=== PATIENT | male | born 1970 | race Caucasian/White ===

== ENCOUNTER 2018-11-28 23:56 | Inpatient (IN) | payer SELFPAY ==
[2018-11-29 00:24] LABS: #Basophils 0.1 thou/uL (0.0-0.2); #Eosinphils 0.2 thou/uL (0.0-0.7); #Lymphocytes 2.7 thou/uL (1.20-3.40); #Monocytes 0.9 thou/uL (0.11-0.59); #Neutrophils 4.5 thou/uL (1.40-6.50); %Basophils 1.2 % (0.0-1.0); %Eosinophils 1.8 % (0.0-10.0); %Lymphocytes 32.2 % (21.0-51.0); %Neutrophils 53.8 % (42.0-75.0); Hemoglobin 16.6 g/dL (14.0-18.0); Mean Corpuscular HGB CONC 32.9 g/dL (32.0-36.0); Mean Corpuscular Hemoglobin 29.1 pg (27.0-31.0); Mean Corpuscular Volume 88.6 fL (78.0-98.0); Mean Platelet Volume 7.5 fL (7.4-10.4); Platelet Count 199 thou/uL (130-400); RBC Distribution Width 11.7 % (11.5-14.5); Red Blood Cell (RBC) Count 5.69 mill/uL (4.70-6.10); White Blood Cell (WBC) Count 8.3 thou/uL (4.8-10.8)
[2018-11-29 00:45] LABS: PTT 30.5 SEC (22.9-36.1); Prothrombin Time 13.5 SEC (12.0-14.7)
[2018-11-29 00:47] LABS: ALT (SGPT) 48 U/L (8-55); AST (SGOT) 28 U/L (5-34); Albumin 4.2 g/dL (3.5-5.0); Alkaline Phosphatase 110 U/L (40-150); Anion Gap 12 mmol/L (10-20); BUN (Urea Nitrogen) 19 mg/dL (8.9-20.6); Bilirubin, Total 0.3 mg/dL (0.2-1.2); CK (CPK) 109 U/L (30-200); Calc. Creatinine Clearance 0 mL/min (70-130); Calcium 9.6 mg/dL (7.8-10.44); Carbon Dioxide 28 mmol/L (22-29); Chloride 102 mmol/L (98-107); Estimated GFR-MDRD Greater than 90; Globulin 2.9 g/dL (2.4-3.5); Glucose 86 mg/dL (70-105); Protein, Total 7.1 g/dL (6.0-8.3); Sodium 138 mmol/L (136-145)
[2018-11-29] MEDS ORDERED: Acetaminophen 500 MG TAB PO PRN (04:38)
[2018-11-29] MEDS ORDERED: niCARdipine 25 MG in Sodium Chloride 0.9% 250 ML 240 ML IVPB PRN (04:38)
[2018-11-29] MEDS ORDERED: Ondansetron ODT 4 MG TAB PO PRN (04:38)
[2018-11-29] MEDS ORDERED: Labetalol HCl 100 MG/20 ML VIAL SLOW IVP PRN (04:38)
[2018-11-29] MEDS ORDERED: Ondansetron PF 4 MG/2 ML Vial IVP PRN (04:38)
[2018-11-29] MEDS: Communication Order-Pharmacy FS SCH (05:18)
[2018-11-29] MEDS: Sodium Chloride 0.9% 1,000 ML IV SCH ×2 (05:18→12:56)
--- NOTE | 2018-11-29 06:06 | HP ---
PRIMARY CARE PROVIDER: [facility]. CHIEF COMPLAINT: Difficulty speaking. HISTORY OF PRESENT ILLNESS: This is a 48-year-old male who presented to [facility] Emergency Department after apparently waking up after going to bed, unable to speak with some facial droop. The history is obtained after discussions with the Emergency Room attending in addition to family members at the bedside. The patient apparently had gone to sleep around 2100 and woke up with confusion and inability to speak. The patient was also noted with right-sided facial droop at which point the family notified EMS personnel. The patient does have a history of hypertension, however, is not compliant with any treatment and currently on no specific medications. The patient denies taking any aspirin therapy, recent fall, injury, or head trauma. The patient and family deny any previous similar symptoms in the past, recent travel history, or fever. The patient did not take any home remedies after symptoms began. In the emergency room, the patient underwent general evaluation including CT of the brain showing no acute intracranial process. The patient underwent CT imaging of the head and neck showing a critical stenosis of the left internal carotid artery and 50% stenosis of the right carotid artery. The patient received tPA per protocol and was transferred to the critical care unit for further evaluation. PAST MEDICAL HISTORY: 1. Hypertension, untreated. 2. Tobacco abuse. PAST SURGICAL HISTORY: Reviewed and negative. CURRENT MEDICATIONS: Zyrtec 10 mg p.o. daily p.r.n. ALLERGIES: NO KNOWN DRUG ALLERGIES. FAMILY HISTORY: Positive for hypertension. SOCIAL HISTORY: Resides in [place], [place]. Self-employed. Smokes up to a pack of cigarettes daily. Social alcohol use. No illicit drug use. Accompanied by his spouse and daughter. REVIEW OF SYSTEMS: Unobtainable as the patient has expressive aphasia. PHYSICAL EXAMINATION: VITAL SIGNS: On admission, blood pressure 177/95, pulse 67, respiratory rate 18, temperature 97.8 degrees Fahrenheit, O2 saturation 97% on room air. GENERAL APPEARANCE: This is a 48-year-old male, alert, nods to questions, in no acute distress. HEENT: Pupils are equal, round, reactive to light and accommodation. Extraocular muscles are intact. No scleral icterus. No conjunctival injection. Nares patent. OP is clear. NECK: Supple. No cervical adenopathy. No thyromegaly. No carotid bruits. No JVD appreciated. Cervical spine with full active and passive range of motion. No meningeal signs noted. CHEST: Inspiratory and expiratory wheezes in the basilar segments bilaterally. CARDIOVASCULAR: S1, S2 without noted murmur, rub, or gallop. Heart sounds distant. ABDOMEN: Flat, soft, nontender, and nondistended. Bowel sounds are positive in all 4 quadrants. There is no hepatosplenomegaly. No abdominal bruits. No rebound or guarding appreciated. EXTREMITIES: Warm and dry with fair turgor. No clubbing, cyanosis, or asymmetric edema appreciated. Pulses palpable distally at the dorsalis pedis, posterior tibial, and popliteal arteries bilaterally. Capillary refill less than 2 seconds. NEUROLOGIC: Expressive aphasia with right facial droop. Right upper extremity with 2/5 to 3/5 strength compared to the left upper extremity was 4/5 to 5/5. Tracks appropriately. States few audible words. Not observed ambulatory during this exam. PERTINENT LABORATORY AND X-RAY FINDINGS: Complete metabolic profile within normal limits. CBC within normal limits. PT 13.5, INR 1.0, PTT 30.5. CT of the brain without contrast dated 11/29/2018 showed no acute intracranial process. CT angiogram of the head and neck showed critical stenosis of the left internal carotid artery. Right internal carotid artery, 50% stenosis. Telemetry monitoring shows sinus mechanism with heart rates in the 50s to 60s. ASSESSMENT AND PLAN: 1. 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 The patient will be admitted to the critical care unit. Status post tPA infusion. Continue general stroke protocol. Continue post tPA protocol. Consult Neurology Service for any further recommendations. Hold aspirin x24 hours post tPA per protocol. Start Lipitor 40 mg p.o. at bedtime. 2. Expressive aphasia secondary to #1. Continue supportive management. Speech Therapy evaluation for dysphagia. 3. Left internal carotid artery stenosis. We will consult Vascular Surgery Service for evaluation and recommendations regarding management. Start aspirin after 24 hours post tPA. 4. Hypertension. Continue general stroke protocol. Serial blood pressure monitoring. 5. Tobacco abuse. We will offer smoking cessation resources prior to discharge. 6. Prophylaxis. SCDs while in bed. Pepcid 20 mg p.o. b.i.d.. 7. Code status is full. Surrogate medical decision maker is the patient's spouse. Job ID: [id number]
--- NOTE | 2018-11-29 07:33 | CT ---
PRELIMINARY REPORT/[facility]/EMERGENCY AFTER HOURS PROCEDURE: Addendum created by Allen Bateman MD on 11/29/2018 12:17 AM Central Time ([place] & [place]) THIS REPORT CONTAINS FINDINGS THAT MAY BE CRITICAL TO PATIENT CARE. The study was personally discussed on the telephone with care provider GAVIOTA BARORSO on 11/29/2018 12:17 AM CDT. The results were understood and acknowledged. Initial Report created on 11/29/2018 12:13 AM Central Time ([place] & [place]) EXAM: CT Head Without Contrast EXAM DATE/TIME: 11/29/2018 12:07 AM CLINICAL HISTORY: 48 years old, male; Altered mental status/memory loss; Confusion or disorientation; Patient HX: *level 1 stroke alert* m50, family reports patient woke up altered. Unable to tell rn what his name a nd bday is. Right sided facial droop. TECHNIQUE: Imaging protocol: Axial computed tomography images of the head without contrast. Other technique: STROKE PROTOCOL was implemented. COMPARISON: No relevant prior studies available. FINDINGS: Brain: Normal. No hemorrhage. Unremarkable white matter. No mass effect. Ventricles: Normal. No ventriculomegaly. Bones/joints: Unremarkable. No acute fracture. Sinuses: Visualized sinuses are unremarkable. No fluid levels. Mastoid air cells: Visualized mastoid air cells are well aerated. No mastoid effusion. Soft tissues: Unremarkable. IMPRESSION: 1. No acute abnormality. 2. [place] Stroke Program Early CT Score (ASPECTS) = 10. Thank you for allowing us to participate in the care of your patient. Dictated and Authenticated by: Allen Bateman MD 11/29/2018 12:13 AM Central Time ([place] & [place]) FINAL REPORT CT HEAD NONCONTRAST PERFORMED ON AN EMERGENCY BASIS: DATE: 11/29/18 TIME: 0007 hours HISTORY: Altered mental status. Confusion. FINDINGS: I agree with the preliminary report by Dr. Bateman from [facility]. Tiny dystrophic c alcification associated with the cortex at a right frontal gyrus on image 28. No acute intracranial abnormalities are demonstrated. Code QA. Transcribed Date/Time: 11/29/2018 7:55 AM
--- NOTE | 2018-11-29 07:44 | CON ---
DATE OF CONSULTATION: 11/29/2018 HISTORY OF PRESENT ILLNESS: Mr. Garcia is a 48-year-old man, who presented to the emergency department last night with right facial droop and aphasia. He received tPA. His facial droop has resolved. His aphasia is improved, but he still is hunting for words. He has no previous history of cerebrovascular accident. He was recently diagnosed with hypertension, but has not received any medical therapy. He smokes up to a pack of cigarettes a day. He works as a line construction supervisor. CT angio of the neck has shown a heavily calcified origin of the left internal carotid artery with a greater than 90% stenosis. On the right, the origin of the internal carotid is calcified and there is approximately 50% stenosis. PAST MEDICAL HISTORY: Hypertension - untreated. PAST SURGICAL HISTORY: None. CURRENT MEDICATIONS: None. ALLERGIES: NONE. SOCIAL HISTORY: He works in construction. He is and accompanied by his . He smokes a pack of cigarettes a day. REVIEW OF SYSTEMS: Ten-point review of systems is performed and negative except as above. PHYSICAL EXAMINATION: GENERAL: This is a well-developed, thin, young man, in no distress. VITAL SIGNS: His heart rate is 70, blood pressure is 138/72. NECK: Supple. He has no carotid bruit that I can hear. There is no adenopathy. CHEST: Clear bilaterally. CARDIAC: Heart rhythm is regular. ABDOMEN: Soft and nontender. EXTREMITIES: No cyanosis, clubbing or edema. VASCULAR: He has palpable carotid, radial, femoral, and dorsalis pedis pulses bilaterally. PSYCHIATRIC: He is awake, alert, and oriented to person, place, and time. NEUROLOGIC: He has no visible facial droop. Vision according to the patient is completely intact. He has no motor deficits. He is obviously still aphasic hunting for words when pressed into answering questions. ASSESSMENT AND PLAN: I have discussed with him the importance of compliance with medical therapy. I have placed him on aspirin, statin, and Plavix currently. We would like to give him a little bit of time for the intracerebral lesion to heal. I will see him back in the office in a week and see where his neurologic exam has landed and make plans from there for endarterectomy. He will need a left endarterectomy and to continue to be followed for his right carotid stenosis. I have discussed with him the importance of smoking cessation. If he is actually hypertensive, he will obviously need treatment for that also. Job ID: [id number]
[2018-11-29] MEDS ORDERED: Sodium Chloride 0.65% Nasal 44 ML BOT EA NARE PRN (07:45)
[2018-11-29] MEDS ORDERED: Senokot S 8.6-50 MG TAB PO PRN (07:45)
[2018-11-29] MEDS ORDERED: Cepastat Lozenges 1 LOZ PO PRN (07:45)
[2018-11-29] MEDS ORDERED: Acetaminophen 650 MG Suppository PR PRN (07:45)
[2018-11-29] MEDS ORDERED: hydrALAZINE 20 MG/ML VIAL SLOW IVP PRN (07:45)
[2018-11-29] MEDS ORDERED: Bisacodyl 10 MG SUPP PR PRN (07:45)
[2018-11-29] MEDS ORDERED: Artificial Tears 18 DROP/0.9 ML EA EYE PRN (07:45)
--- NOTE | 2018-11-29 07:45 | CT ---
PRELIMINARY REPORT/[facility]/EMERGENCY AFTER HOURS PROCEDURE: Addendum created by Allen Bateman MD on 11/29/2018 12:37 AM Central Time ([place]) THIS REPORT CONTAINS FINDINGS THAT MAY BE CRITICAL TO PATIENT CARE. The study was personally discussed on the telephone with care provider GAVIOTA BARROSO on 11/29/2018 12:37 AM CDT. The results were understood and acknowledged. Initial Report created on 11/29/2018 12:36 AM Central Time ([place]) EXAM: CT Angiography Head Without And With Contrast EXAM DATE/TIME: 11/29/2018 12:12 AM CLINICAL HISTORY: 48 years old, male; Weakness; Patient HX: *level 1 stroke alert* m50, family reports patient woke up altered. Unable to tell rn what his name and bday is. Right sided facial droop. ; Additional info: this is also a cta neck exam TECHNIQUE: Imaging protocol: Axial computed tomographic angiography images of the head without and with intravenous contrast using CT angiography protocol. Coronal and sagittal reformatted images were created and reviewed. 3D rendering: MIP reconstructed images were created and reviewed. Other technique: STROKE PROTOCOL was implemented. COMPARISON: CT Brain WO Con 11/29/2018 12:07 AM FINDINGS: Right internal carotid artery: Mild cavernous and supraclinoid right internal carotid artery atherosclerotic plaque and stenosis. Right anterior cerebral artery: Unremarkable. No occlusion or significant stenosis. No aneurysm. Right middle cerebral artery: Unremarkable. No occlusion or significant stenosis. No aneurysm. Right posterior cerebral artery: Unremarkable. No occlusion or significant stenosis. No aneurysm. Right vertebral artery: Unremarkable. No occlusion or significant stenosis. No aneurysm. Left internal carotid artery: Mild cavernous and supraclinoid left internal carotid artery atherosclerotic plaque and stenosis. Diminished size of the left internal carotid artery. Left anterior cerebral artery: Unremarkable. No occlusion or significant stenosis. No aneurysm. Left middle cerebral artery: Left MCA M2 branch occlusion. Left posterior cerebral artery: Unremarkable. No occlusion or significant stenosis. No aneurysm. Left vertebral artery: Unremarkable. No occlusion or significant stenosis. No aneurysm. Basilar artery: Unremarkable. No occlusion or significant stenosis. No aneurysm. HEAD: Brain: Loss of francis-white differentiation within the left anterior insula and perisylvian region and left lateral frontal lobe. Ventricles: Normal. No ventriculomegaly. Bones/joints: Unremarkable. No acute fracture. Sinuses: Mild scattered paranasal sinus mucosal thickening and secretions. Mastoid air cells: Visualized mastoids are normal. No mastoid effusion. Soft tissues: Unremarkable. Dental: Dental caries and periodontal disease. IMPRESSION: 1. Beatriz Stroke Program Early CT Score (ASPECTS) = 6. 2. Left MCA M2 branch occlusion. 3. Loss of francis-white differentiation within the left anterior insula and perisylvian region and left lateral frontal lobe. Evidence of acute left MCA territory infarct. Retrospectively, there is a corresponding subtle loss of francis-white on the recent noncontrast comparison. EXAM: CT Angiography Neck With Contrast EXAM DATE/TIME: 11/29/2018 12:12 AM CLINICAL HISTORY: 48 years old, male; Weakness; Patient HX: *level 1 stroke alert* m50, family reports patient woke up altered. Unable to tell rn what his name and bday is. Right sided facial droop. ; Additional info: this is also a cta neck exam TECHNIQUE: Imaging protocol: Axial computed tomographic angiography images of the neck with intravenous contrast using CT angiography protocol. Coronal and sagittal reformatted images were created and reviewed. COMPARISON: CT Brain WO Con 11/29/2018 12:07 AM FINDINGS: VASCULATURE: Right common carotid artery: Mild atherosclerotic plaque in the predominately distal right common carotid artery and the bifurcation. Right internal carotid artery: Mild to moderate atherosclerotic plaque in the proximal right internal carotid artery with 50-69% stenosis by NASCET criteria. Right external carotid artery: Unremarkable. No occlusion or stenosis of the origin. Right vertebral artery: Unremarkable. No stenosis. No dissection or occlusion. Left common carotid artery: Mild atherosclerotic plaque in the predominately distal left common carotid artery and the bifurcation. Left internal carotid artery: Moderate to severe atherosclerotic plaque in the proximal left internal carotid artery with greater than 69% stenosis by NASCET criteria. Diminished size of the left mid and distal cervical internal carotid artery caliber. Left external carotid artery: Unremarkable. No occlusion or stenosis of the origin. Left vertebral artery: Unremarkable. No stenosis. No dissection or occlusion. NECK: Bones/joints: No acute fracture. Soft tissues: Normal. No significant soft tissue swelling. IMPRESSION: 1. Mild to moderate atherosclerotic plaque in the proximal right internal carotid artery with 50-69% stenosis by NASCET criteria. 2. Moderate to severe atherosclerotic plaque in the proximal left internal carotid artery with greate r than 69% stenosis by NASCET criteria. COMMENT: Reference per NASCET criteria for degree of stenosis: Mild: less than 50% stenosis. Moderate: 50- 69% stenosis. Severe: 70-94% stenosis. Near occlusion: 95-99% stenosis. Thank you for allowing us to participate in the care of your patient. Dictated and Authenticated by: Allen Bateman MD 11/29/2018 12:36 AM Central Time ([place]) Addendum created by Hiren Jim MD on 11/29/2018 1:49 AM Central Time ([place] & [place]) Findings discussed with GAVIOTA BARROSO MD at time of interpretation. Initial Report created on 11/29/2018 1:43 AM Central Time ([place] & [place]) EXAM: CT Cerebral Perfusion With Contrast EXAM DATE/TIME: 11/29/2018 1:07 AM CLINICAL HISTORY: 48 years old, male; Weakness, extremity; Additional info: Level 1 stroke alert* m50, family reports patient woke up altered. Unable to tell rn what his name and bday is. Right sided facial droop. TECHNIQUE: Imaging protocol: Axial computed tomography images of the brain with intravenous contrast using cerebral perfusion protocol. Post-processing parametric maps were created and reviewed. These include cerebral blood flow, cerebral blood volume and mean transit time. COMPARISON: CTA Angio Head W WO Con 11/29/2018 12:12 AM FINDINGS: There is large area of increased mean transit time in the left MCA distribution. There is a relativel y small area of decreased cerebral blood volume within the left MCA territory in the left frontal lobe with corresponding severe reduction in cerebral blood flow, consistent with core infarction. There is a larger area of surrounding moderately decreased cerebral blood flow that correlates with normal cerebral blood volume, consistent with potentially reversible ischemic penumbra. IMPRESSION: Relatively large area of potentially reversible ischemia in the left MCA territory with relatively sm all core infarction in the left frontal lobe. Thank you for allowing us to participate in the care of your patient. Dictated and Authenticated by: Hiren Jim MD 11/29/2018 1:43 AM Central Time ([place] & [place]) FINAL REPORT CT arteriogram neck with IV contrast and 3-D imaging CT arteriogram head with IV contrast and 3-D imaging CT brain with IV contrast CT cerebral perfusion with IV contrast 11/29/2018 performed on emergency basis at 0012 hours HISTORY: Right facial droop. Altered mental status. FINDINGS: I agree with the preliminary report by Dr. Jim from [facility]. Normal branching of the great vessels at the aortic arch with good flow into each vertebral and carotid system. Mild to moderate stenosis at the origin of the right internal carotid artery at the bifurcation. High grade stenosis with near complete occlusion at the origin of the left internal carotid artery at the bifurcation. Small left internal carotid artery. [place] is intact. Perfusion images elmo w diminished blood flow with increased transit time of flow to the left frontal and temporal lobes. Angiographic images show diminished contrast in the same distribution. Probable occlusion at a distal anterior branch of the left middle cerebral artery. No large central embolus is evident. Code QA. Transcribed Date/Time: 11/29/2018 8:16 AM
[2018-11-29] MEDS ORDERED: Acetaminophen 325 MG TAB PO PRN (07:46)
[2018-11-29] MEDS ORDERED: Aspirin 81 mg Enteric Coated Tablet PO SCH (09:00)
[2018-11-29] MEDS ORDERED: Famotidine 20 MG TAB PO SCH (09:00)
[2018-11-29] MEDS ORDERED: Clopidogrel Bisulfate 75 MG TAB PO SCH (09:00)
--- NOTE | 2018-11-29 10:00 | CON ---
DATE OF CONSULTATION: HISTORY OF PRESENT ILLNESS: Marlon Garcia is a 48-year-old gentleman, who is still relatively aphasic. He is status post tPA, presented with motor deficit, facial drooping, unable to speak, right-sided facial weakness. Apparently, he was given tPA emergently. Work up including a CTA of head and neck revealed a large area of potentially reversible ischemia of the left MCA territory. CT brain on admission, no acute abnormality was noted. His workup eventually revealed CT angio of the neck showing left internal carotid 90% stenosis, right-sided carotid over 50% stenosis. His is at the bedside. PAST MEDICAL HISTORY: Hypertension. PAST SURGICAL HISTORY: None. 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 Denies any drinking. REVIEW OF SYSTEMS: Unobtainable. He is still aphasic. at the bedside. PHYSICAL EXAMINATION: VITAL SIGNS: Pulse 57, blood pressure 140/92, . CHEST: No wheezing or crackles. CARDIAC: Normal S1 and S2. ABDOMEN: No masses. LABORATORY DATA: Lytes are normal. White count is unremarkable. IMPRESSION: Status post tPA, aphasia, weakness, tobacco abuse, hypertension. PLAN: X-ray being ordered. He was started on aspirin and Plavix. Surgery consultation . Pulmonary Critical Care will follow while in the ICU. Consultation note, 70 minutes, 50% direct patient care. Job ID: [id number]
--- NOTE | 2018-11-29 10:21 | CT ---
HEAD CT NONCONTRAST: COMPARISON: 11/29/2018. INDICATION: History of CVA with TPA administration. FINDINGS: No interval acute intracranial hemorrhage, mass effect, or midline shift. Ventricular system is stab le. There is a region of diminished attenuation localizing to the anterior division left MCA territory co mpatible with evolving cytotoxic edema. IMPRESSION: Newly developed cytotoxic edema localizing to anterior division left middle cerebral artery territory compatible with recent infarction. Consider noncontrast brain MRI for more definitive assessment. CODE T
--- NOTE | 2018-11-29 10:56 | RAD ---
CHEST ONE VIEW: HISTORY: CVA. FINDINGS: Monitor leads overly the chest. Heart size is within normal limits. Lungs are clear. Old granuloma tous disease. IMPRESSION: 1. No acute intrathoracic disease. 2. Old granulomatous disease. 3. No acute process. POS: OFF
[2018-11-29] MEDS ORDERED: Famotidine/PF 20 mg/2ml Vial SLOW IVP SCH (11:00)
--- NOTE | 2018-11-29 11:06 | PDOC.PN ---
- Subjective Encounter Start Date: 11/29/18 Encounter Start Time: 09:40 -: old records requested/rev Patient seen and examined. No new complaints. No overnight events pt is doing well after TPA, no headache, - Objective Resuscitation Status - Order Detail: 11/29/18 04:29 Resuscitation Status Routine Resuscitation Status: FULL: Full Resuscitation MAR Reviewed: Yes Vital Signs & Weight: Vital Signs (12 hours) Temp Pulse Ox 11/29/18 04:00 98.1 F 11/29/18 01:30 100 11/29/18 01:17 97.8 F Weight Weight 158 lb 11.725 oz Most Recent Monitor Data Heart Rate from ECG 59 NIBP 146/89 NIBP BP-Mean 108 Respiration from ECG 20 SpO2 100 I&O: 11/28/18 11/29/18 11/30/18 06:59 06:59 06:59 Output Total 800 400 Balance -800 -400 Result Diagrams: 11/29/18 00:17 11/29/18 00:17 Additional Labs: Accuchecks 11/29/18 00:06 POC Glucose 104 Radiology Reviewed by me: Yes (CT brain noted) EKG Reviewed by me: Yes (NSR) Phys Exam - Physical Examination Constitutional: NAD HEENT: PERRLA, moist MMs, sclera anicteric Neck: no JVD, supple, full ROM Respiratory: no wheezing, no rales, no rhonchi Cardiovascular: RRR, no significant murmur, no rub Gastrointestinal: soft, non-tender, no distention, positive bowel sounds Musculoskeletal: no edema, pulses present Neurological: normal sensation, moves all 4 limbs Lymphatic: no nodes Psychiatric: normal affect, A&O x 3 Skin: no rash, normal turgor Dx/Plan (1) Acute ischemic left MCA stroke Code(s): I63.512 - CEREB INFRC D/T UNSP OCCLS OR STENOS OF LEFT MID CEREB ART Status: Acute (2) Left carotid artery stenosis Code(s): I65.22 - OCCLUSION AND STENOSIS OF LEFT CAROTID ARTERY Status: Acute (3) Received intravenous tissue plasminogen activator (tPA) in emergency department Code(s): Z92.82 - S/P ADMN TPA IN DIFF FAC W/N LAST 24 HR BEF ADM TO CRNT FAC Status: Acute (4) Dyslipidemia Code(s): E78.5 - HYPERLIPIDEMIA, UNSPECIFIED Status: Chronic (5) Hypertension Code(s): I10 - ESSENTIAL (PRIMARY) HYPERTENSION Status: Chronic (6) Tobacco abuse Code(s): Z72.0 - TOBACCO USE Status: Chronic - Plan cont current plan of care, plan discussed w/ family, PT/OT, clinical social work therapist, speech therapy * pt will be in CCU for 24 hour after TPA * medication reviewed as below * symptomatic treatment * stroke team evaluation * today echo and MRI * neurology consulted * continue statin * aspirin, plavix will be started tomorrow * CV surgery recommendation noted * counselled to avoid smoking * discussed with family. Review of Systems - Review of Systems ENT: negative: Ear Pain, Ear Discharge, Nose Pain, Nose Discharge, Nose Congestion, Mouth Pain, Mouth Swelling, Throat Pain, Throat Swelling, Other Respiratory: negative: Cough, Dry, Shortness of Breath, Hemoptysis, SOB with Excertion, Pleuritic Pain, Sputum, Wheezing Cardiovascular: negative: chest pain, palpitations, orthopnea, paroxysmal nocturnal dyspnea, edema, light headedness, other Gastrointestinal: negative: Nausea, Vomiting, Abdominal Pain, Diarrhea, Constipation, Melena, Hematochezia, Other Genitourinary: negative: Dysuria, Frequency, Incontinence, Hematuria, Retention , Other Musculoskeletal: negative: Neck Pain, Shoulder Pain, Arm Pain, Back Pain, Hand Pain, Leg Pain, Foot Pain, Other - Medications/Allergies Allergies/Adverse Reactions: Allergies Allergy/AdvReac Type Severity Reaction Status Date / Time No Known Allergies Allergy Unverified 11/29/18 02:00 Medications: Current Medications Acetaminophen (Tylenol) 650 mg MD Q4H PRN PRN Reason: Fever > 101 Acetaminophen (Tylenol) 650 mg PO Q6H PRN PRN Reason: Mild Pain (1-3) Artificial Tears (Tears Naturale) 2 drop EA EYE PRN PRN PRN Reason: Dry Eyes Aspirin (Ecotrin) 81 mg PO DAILY [facility] Atorvastatin Calcium (Lipitor) 40 mg PO HS [facility]LO Bisacodyl (Dulcolax) 10 mg MD DAILYPRN PRN PRN Reason: Constipation Clopidogrel Bisulfate (Plavix) 75 mg PO DAILY [facility] Famotidine (Pepcid) 20 mg SLOW IVP BID [facility] Famotidine (Pepcid) 20 mg SLOW IVP NOW [facility] Stop: 11/29/18 15:00 Hydralazine HCl (Apresoline) 10 mg SLOW IVP Q4H PRN PRN Reason: SBP > 180 and HR < 70 Nicardipine HCl 25 mg/ Sodium (Chloride) 250 mls @ 0 mls/hr IVPB INF PRN; Protocol PRN Reason: SBP > 180 or DBP > 105 Sodium Chloride (Normal Saline 0.9%) 1,000 mls @ 75 mls/hr IV .[id number] [facility] Last Admin: 11/29/18 05:18 Dose: 1,000 mls Labetalol HCl (Normodyne) 10 mg SLOW IVP Q2H PRN PRN Reason: SBP > 180 or DBP > 105 Miscellaneous Information (Communication Order-Pharmacy) 1 each FS NOW [facility] Stop: 11/30/18 04:39 Last Admin: 11/29/18 05:18 Dose: Not Given Ondansetron HCl (Zofran Odt) 4 mg PO Q6H PRN PRN Reason: Nausea/Vomiting Ondansetron HCl (Zofran) 4 mg IVP Q6H PRN PRN Reason: Nausea/Vomiting Senna/Docusate Sodium (Senokot S) 2 tab PO BID PRN PRN Reason: Constipation Sodium Chloride (Flush - Normal Saline) 10 ml IVF Q12HR JOSELO Sodium Chloride (Flush - Normal Saline) 10 ml IVF PRN PRN PRN Reason: Saline Flush Sodium Chloride ([place] Nas[place] 0.65%) 0 ml EA NARE QIDPRN PRN PRN Reason: Nasal Congestion Throat Lozenges (Cepastat Lozenges) 1 ana PO Q2H PRN PRN Reason: Sore Throat
--- NOTE | 2018-11-29 15:58 | MRI ---
MRI BRAIN WITHOUT CONTRAST: HISTORY: Cerebrovascular accident. COMPARISON: CT brain same day. FINDINGS: On the diffusion weighted imaging sequence, there is an acute infarction of the anterior left MCA ter ritory involving the frontal and temporal lobes. There is also a small focus of diffusion restrictio n in the left middle temporal gyrus. On the susceptibility weighted imaging sequence, there are no abnormal areas of hemorrhage. Mild cyt otoxic edema. Marrow signal of the clivus is maintained. Cerebellar tonsils terminate just below the level of the foramen magnum. IMPRESSION: Acute left middle cerebral artery territory infarction involving predominantly the left inferior and middle frontal and temporal lobes as well as some punctate foci of the superior temporal, parietal an d frontal gyri suggesting a component of embolic phenomenon. POS: HOME
--- NOTE | 2018-11-29 16:52 | CON ---
DATE OF CONSULTATION: 11/29/2018 CONSULTING PHYSICIAN: Hospitalist Service. IMPRESSION: 1. Left anterior division middle cerebral artery stroke with fairly remarkable recovery following tPA. 2. High-grade left carotid stenosis. 3. Right 50% carotid stenosis. 4. Tobacco use. 5. Noncompliance of treatment of hypertension. PLAN: Agree with Vascular Surgery with antiplatelet therapy and a statin. He will be scheduled for carotid endarterectomy at a later date. HISTORY OF PRESENT ILLNESS: Mr. Garcia is a 48-year-old man, who came in with acute onset of right-sided weakness and speech difficulty. His CT angiogram was as noted above. He was administered tPA. His symptoms improve significantly. His followup MRI of the brain shows a left anterior division middle cerebral artery stroke. He has been a bit hypertensive since admission with diastolics around 96. He was not on any type of medication prior to the admission. PAST MEDICAL HISTORY: Hypertension. ALLERGIES: NONE REPORTED. SOCIAL HISTORY: Positive for tobacco. FAMILY HISTORY: Noncontributory. REVIEW OF SYSTEMS: Ten system review of systems is otherwise negative. PHYSICAL EXAMINATION: GENERAL: He is a reasonably healthy-appearing middle-aged man, in no distress. VITAL SIGNS: Blood pressure 145/96, pulse 55, respirations 22, and saturations 100%. HEENT: Pupils are equal and reactive. Conjunctivae are clear. Oropharynx clear. Cranium, normocephalic and atraumatic. NECK: Supple. EXTREMITIES: No cyanosis or edema. NEUROLOGIC: He was alert and cooperative. His speech is fluent and clear. He followed commands appropriately. There is no facial asymmetry noted. He had good marketing technology specialist strength bilaterally. There was no fix or drift. The sensation was intact to touch. He got out of bed earlier and was walking independently. LABORATORY DATA: EKG, sinus bradycardia. This is a middle-aged man, who has made a fairly miraculous recovery from reasonable size infarct. I agree with vascular surgeries plan. I will be available if there are any further questions. Job ID: [id number]
[2018-11-29] MEDS ORDERED: Atorvastatin Calcium 10 MG TAB PO SCH (21:00)
[2018-11-29] MEDS: Famotidine/PF 20 mg/2ml Vial SLOW IVP SCH (21:06)
[2018-11-29] MEDS: Atorvastatin Calcium 40 MG TAB PO SCH (21:07)
[2018-11-30] MEDS: Sodium Chloride 0.9% 1,000 ML IV SCH (02:18)
[2018-11-30] MEDS: Communication Order-Pharmacy FS SCH (04:10)
[2018-11-30 05:04] LABS: Band 3 % (5-11); Eosinophils 3 % (0-10); Lymphocytes 23 % (21-51); MDiff Complete? YES; Mean Corpuscular HGB CONC 32.1 g/dL (32.0-36.0); Mean Corpuscular Hemoglobin 28.2 pg (27.0-31.0); Mean Corpuscular Volume 87.9 fL (78.0-98.0); Mean Platelet Volume 7.5 fL (7.4-10.4); Metamyelocyte 1 % (0-0); Monocytes 6 % (0-10); Neutrophil 64 % (42-75); Platelet Count 202 thou/uL (130-400); Platelet Morphology Comment Appears Adequate; RBC Distribution Width 11.6 % (11.5-14.5); Red Blood Cell (RBC) Count 5.31 mill/uL (4.70-6.10); White Blood Cell (WBC) Count 8.1 thou/uL (4.8-10.8)
[2018-11-30 05:07] LABS: Anion Gap 11 mmol/L (10-20); BUN (Urea Nitrogen) 13 mg/dL (8.9-20.6); Calc. Creatinine Clearance 102 mL/min (70-130); Calcium 9.1 mg/dL (7.8-10.44); Carbon Dioxide 26 mmol/L (22-29); Cardiac Risk 7.4 (Less than 4.5); Chloride 103 mmol/L (98-107); Cholesterol 236 mg/dl (< 200 Desired); Estimated GFR-MDRD Greater than 90; Glucose 73 mg/dL (70-105); HDL Cholesterol 32 mg/dL (>60 Neg Risk); LDL Cholesterol, Calculated 177 mg/dL; Potassium 4.3 mmol/L (3.5-5.1); Sodium 136 mmol/L (136-145); Triglycerides 137 mg/dL (Less than 150)
[2018-11-30] MEDS: Famotidine/PF 20 mg/2ml Vial SLOW IVP SCH ×2 (07:57→20:46)
[2018-11-30] MEDS: Aspirin 81 mg Enteric Coated Tablet PO SCH (07:57)
[2018-11-30] MEDS: Clopidogrel Bisulfate 75 MG TAB PO SCH (07:57)
--- NOTE | 2018-11-30 08:35 | PRG ---
DATE OF SERVICE: 11/30/2018 SUBJECTIVE: This morning, he is awake, alert, and responsive. No pain discomfort. His speech is coming back. OBJECTIVE: VITAL SIGNS: Blood pressure 134/74, temperature 98, pulse 59, saturations are 100% room air, respiratory rate 23. I's and O's have been excellent. CHEST: No wheezing or crackles. CARDIAC: Normal S1, S2. No gallops. ABDOMEN: No masses. LABORATORY DATA: Unremarkable. IMPRESSION: Status post cerebrovascular accident, left carotid stenosis. CTA neck showing left middle cerebral artery territory distribution cerebrovascular accident. PLAN: Continue PT, supportive care. He is going to be transferred to the Stroke Unit. Pulmonary/Critical Care will follow at a distance. Please call, if needed. Job ID: [id number]
--- NOTE | 2018-11-30 12:11 | PDOC.PN ---
- Subjective Encounter Start Date: 11/30/18 Encounter Start Time: 08:50 Patient seen and examined. No new complaints. No overnight events - Objective Resuscitation Status - Order Detail: 11/29/18 04:29 Resuscitation Status Routine Resuscitation Status: FULL: Full Resuscitation MAR Reviewed: Yes Vital Signs & Weight: Vital Signs (12 hours) Temp Pulse BP BP Pulse Ox 11/30/18 09:32 58 L 126/77 155/87 H 11/30/18 08:00 98 F 99 11/30/18 07:06 98 11/30/18 04:00 98.3 F Weight Admit Weight 158 lb 11.725 oz Weight 158 lb 11.725 oz Most Recent Monitor Data Heart Rate from ECG 56 NIBP 168/79 NIBP BP-Mean 108 Respiration from ECG 19 SpO2 100 I&O: 11/29/18 11/30/18 12/01/18 06:59 06:59 06:59 Intake Total 1801 211 Output Total 800 2125 300 Balance -800 -324 -89 Result Diagrams: 11/30/18 04:22 11/30/18 04:22 EKG Reviewed by me: Yes (nsr) Phys Exam - Physical Examination Constitutional: NAD HEENT: PERRLA, moist MMs, sclera anicteric Neck: no JVD, supple Respiratory: no wheezing, no rales, no rhonchi Cardiovascular: RRR, no significant murmur, no rub Gastrointestinal: soft, non-tender, no distention, positive bowel sounds Musculoskeletal: no edema, pulses present Neurological: non-focal, normal sensation, moves all 4 limbs Lymphatic: no nodes Psychiatric: normal affect, A&O x 3 Skin: no rash, normal turgor Dx/Plan (1) Acute ischemic left MCA stroke Code(s): I63.512 - CEREB INFRC D/T UNSP OCCLS OR STENOS OF LEFT MID CEREB ART Status: Acute (2) Left carotid artery stenosis Code(s): I65.22 - OCCLUSION AND STENOSIS OF LEFT CAROTID ARTERY Status: Acute (3) Received intravenous tissue plasminogen activator (tPA) in emergency department Code(s): Z92.82 - S/P ADMN TPA IN DIFF FAC W/N LAST 24 HR BEF ADM TO CRNT FAC Status: Acute (4) Dyslipidemia Code(s): E78.5 - HYPERLIPIDEMIA, UNSPECIFIED Status: Chronic (5) Hypertension Code(s): I10 - ESSENTIAL (PRIMARY) HYPERTENSION Status: Chronic (6) Tobacco abuse Code(s): Z72.0 - TOBACCO USE Status: Chronic - Plan cont current plan of care, PT/OT * transfer to stroke * continue stroke team evaluation and treatment today * medication reviewed as below * symptomatic treatment. Review of Systems - Review of Systems ENT: negative: Ear Pain, Ear Discharge, Nose Pain, Nose Discharge, Nose Congestion, Mouth Pain, Mouth Swelling, Throat Pain, Throat Swelling, Other Respiratory: negative: Cough, Dry, Shortness of Breath, Hemoptysis, SOB with Excertion, Pleuritic Pain, Sputum, Wheezing Cardiovascular: negative: chest pain, palpitations, orthopnea, paroxysmal nocturnal dyspnea, edema, light headedness, other Gastrointestinal: negative: Nausea, Vomiting, Abdominal Pain, Diarrhea, Constipation, Melena, Hematochezia, Other Genitourinary: negative: Dysuria, Frequency, Incontinence, Hematuria, Retention , Other Musculoskeletal: negative: Neck Pain, Shoulder Pain, Arm Pain, Back Pain, Hand Pain, Leg Pain, Foot Pain, Other Skin: negative: Rash, Lesions, John, Bruising, Other - Medications/Allergies Allergies/Adverse Reactions: Allergies Allergy/AdvReac Type Severity Reaction Status Date / Time strawberry Allergy Hives Verified 11/29/18 11:33 Medications: Current Medications Acetaminophen (Tylenol) 650 mg MD Q4H PRN PRN Reason: Fever > 101 Acetaminophen (Tylenol) 650 mg PO Q6H PRN PRN Reason: Mild Pain (1-3) Artificial Tears (Tears Naturale) 2 drop EA EYE PRN PRN PRN Reason: Dry Eyes Aspirin (Ecotrin) 81 mg PO DAILY [facility] Last Admin: 11/30/18 07:57 Dose: 81 mg Atorvastatin Calcium (Lipitor) 40 mg PO HS [facility] Last Admin: 11/29/18 21:07 Dose: 40 mg Bisacodyl (Dulcolax) 10 mg MD DAILYPRN PRN PRN Reason: Constipation Clopidogrel Bisulfate (Plavix) 75 mg PO DAILY [facility] Last Admin: 11/30/18 07:57 Dose: 75 mg Famotidine (Pepcid) 20 mg SLOW IVP BID [facility] Last Admin: 11/30/18 07:57 Dose: 20 mg Hydralazine HCl (Apresoline) 10 mg SLOW IVP Q4H PRN PRN Reason: SBP > 180 and HR < 70 Labetalol HCl (Normodyne) 10 mg SLOW IVP Q2H PRN PRN Reason: SBP > 180 or DBP > 105 Ondansetron HCl (Zofran Odt) 4 mg PO Q6H PRN PRN Reason: Nausea/Vomiting Ondansetron HCl (Zofran) 4 mg IVP Q6H PRN PRN Reason: Nausea/Vomiting Senna/Docusate Sodium (Senokot S) 2 tab PO BID PRN PRN Reason: Constipation Sodium Chloride (Flush - Normal Saline) 10 ml IVF Q12HR [facility] Last Admin: 11/30/18 08:44 Dose: 10 ml Sodium Chloride (Flush - Normal Saline) 10 ml IVF PRN PRN PRN Reason: Saline Flush Sodium Chloride ([place] Nasal [place] 0.65%) 0 ml EA NARE QIDPRN PRN PRN Reason: Nasal Congestion Throat Lozenges (Cepastat Lozenges) 1 ana PO Q2H PRN PRN Reason: Sore Throat
[2018-11-30] MEDS: Atorvastatin Calcium 40 MG TAB PO SCH (20:46)
[2018-12-01] MEDS: Clopidogrel Bisulfate 75 MG TAB PO SCH (09:22)
[2018-12-01] MEDS: Famotidine/PF 20 mg/2ml Vial SLOW IVP SCH (09:22)
[2018-12-01] MEDS: Aspirin 81 mg Enteric Coated Tablet PO SCH (09:22)
[2018-12-01 09:57] VITALS: BMI 24.3
--- NOTE | 2018-12-01 19:58 | PRG ---
DATE OF SERVICE: 12/01/2018 SUBJECTIVE: The patient is a 48-year-old male with hypertension and tobacco dependence, presented to the hospital with stroke-like symptoms. He received tPA in the emergency room. MRI of the brain was consistent with acute left MCA territory infarction. CT angiogram of the head and neck showed yqoncyia-dt-xkcawn left internal carotid artery stenosis as well as qssh-nw-vkuwiudw right internal carotid stenosis. He was evaluated by Neurology and cardiothoracic. Echocardiogram showed normal left ventricular ejection fraction. He was transferred to Stroke Unit yesterday. At this time, the patient denies any new focal deficit. He continues to have expressive aphasia. He denies any chest pain, shortness of breath, or palpitations. OBJECTIVE: VITAL SIGNS: Temperature 97.5, pulse of 52, respirations of 16, and blood pressure of 170/91, 144/86, and 154/96. Intake of 611, output 700. GENERAL: A 48-year-old male, in no apparent distress. LUNGS: Clear to auscultation bilaterally. No wheezing or rales. HEART: S1 and S2 present, regular. ABDOMEN: Soft and nontender. Bowel sounds present. EXTREMITIES: No edema or calf tenderness. NEUROLOGIC: No new focal deficit. The patient continues to have expressive aphasia with facial droop. MEDICATIONS: Current medications were reviewed. The patient is on aspirin 81 mg daily along with Plavix and statin. DIAGNOSTIC STUDIES: Telemetry monitoring by my review showed sinus bradycardia. LABORATORY FINDINGS: Cholesterol 236, LDL 177, HDL 32, and triglyceride 137. MRI of the brain as discussed above. EKG by my review showed sinus bradycardia. IMPRESSION: 1. Acute left middle cerebral artery distribution cerebrovascular accident, status post tPA. 2. Knxxrhoc-bp-xykhqt left internal carotid artery stenosis and nbjz-zo-ugxamxdx right internal carotid artery stenosis. 3. Hypertension. 4. Tobacco dependence. 5. Medication noncompliance. PLAN: The patient is currently on dual antiplatelet therapy. The patient has been evaluated by Neurology and cardiovascular. He was advised to follow up with cardiovascular as outpatient. Lifestyle modification was emphasized including tobacco cessation. We will continue statins along with aspirin and Plavix. We will change H2 blockers to p.o. Stroke Team. Discharge planning. Plan of care was discussed with the patient. He stated understanding. Job ID: [id number]
[2018-12-01] MEDS: Famotidine 20 MG TAB PO SCH (20:32)
[2018-12-01] MEDS: Atorvastatin Calcium 40 MG TAB PO SCH (20:32)
[2018-12-02] MEDS: Clopidogrel Bisulfate 75 MG TAB PO SCH (08:28)
[2018-12-02] MEDS: Famotidine 20 MG TAB PO SCH (08:28)
[2018-12-02] MEDS: Aspirin 81 mg Enteric Coated Tablet PO SCH (08:28)
[2018-12-02] MEDS ORDERED: Atorvastatin Calcium 40 MG TAB PO SCH (15:45)
[2018-12-02 16:10] VITALS: BP 141/99; TEMP 97.8
--- NOTE | 2018-12-03 09:16 | DIS ---
DATE OF ADMISSION: 11/29/2018 DATE OF DISCHARGE: 12/02/2018 DISCHARGE DISPOSITION: Home. FOLLOWUP: 1. Follow up with primary care physician at [facility] in 1 week. 2. Follow up with Dr. Maldonado in 2 weeks. 3. Follow up with Dr. Rashad Landon as scheduled for carotid stenosis. DISCHARGE MEDICATIONS: 1. Aspirin 81 mg daily. 2. Plavix 75 mg daily. 3. Lipitor 40 mg at bedtime. The patient was seen and examined on the day of discharge. Denies any new complaints. No chest pain, shortness of breath, or palpitations reported. No new focal deficit. He continues to have expressive aphasia. BRIEF HOSPITAL COURSE: The patient is a 48-year-old male with hypertension and tobacco dependence, presented to the hospital on November with difficulty speaking along with some facial droop. Please refer to the history and physical for further details by Dr. Rashad Du. The patient was admitted to the Stroke Unit with diagnosis of possible acute CVA. MRI of the brain showed acute left middle cerebral artery territory infarction involving predominantly the left inferior and middle frontal and temporal lobes as well as some punctate foci of the superior temporal, parietal, and frontal gyrus suggesting a component of embolic phenomena. CT angiogram of the head and neck showed left MCA M2 branch occlusion as well as qzrldgwg-rn-mxdrgo proximal left internal carotid artery stenosis and xgsv-sa-bsmpgukm proximal right internal carotid artery stenosis. He was evaluated by Dr. Maldonado as well as, cardiovascular Dr. Rashad Landon. He has been started on aspirin and Plavix per Neurology and Cardiovascular recommendation. He was advised to follow up with Dr. Rashad Landon in a week to make plans for carotid endarterectomy on the left. He will also need to follow up on the right carotid stenosis. He understands the risks associated with dual-antiplatelet therapy. His fasting lipid profile showed cholesterol of 236, LDL 177, triglyceride 137, HDL of 32. His echocardiogram showed left ventricular ejection fraction 50% to 55% with mild mitral regurgitation and mild tricuspid regurgitation. FINAL DIAGNOSES: 1. Acute left MCA distribution cerebrovascular accident. Please note that the patient received tPA in the emergency room. 2. Yzpkzeal-er-vbudgy left internal carotid artery stenosis as well as iopt-ac-jhgocmtx right internal carotid artery stenosis. The patient will follow up with Dr. Landon as outpatient. He is on aspirin and Plavix. 3. Hypertension. 4. Tobacco dependence. 5. Dyslipidemia. 6. Medication noncompliance. TIME SPENT WITH PATIENT: Total time coordinating the discharge of this patient was 33 minutes. Job ID: [id number]
--- NOTE | 2018-12-03 16:36 | EKG ---
Test Reason : Blood Pressure : / mmHG Vent. Rate : 065 BPM Atrial Rate : 065 BPM P-R Int : 130 ms QRS Dur : 106 ms QT Int : 394 ms P-R-T Axes : 065 054 067 degrees QTc Int : 409 ms Normal sinus rhythm Normal ECG Confirmed by GAVIOTA BARROSO D.O. ([id number]), movie editor KEON ONEILL ([id number]) on 12/03/2018 4:36:19 PM Referred By: Confirmed By:GAVIOTA BARROSO D.O.
== END 2018-12-02 16:49 | disposition home or self-care (01) | DRG 61 ==
LOC: ERS 23:56 → CCU 11-29 01:18 → 2SE 11-30 17:31
PROVIDERS: ADMIT Family Medicine; ATTEND Family Medicine
DX: I63.512 Cerebral infarction due to unspecified occlusion or stenosis of left middle cerebral artery (principal); R40.2212 Coma scale, best verbal response, none, at arrival to emergency department; I10 Essential (primary) hypertension; R47.01 Aphasia; F17.210 Nicotine dependence, cigarettes, uncomplicated; I65.23 Occlusion and stenosis of bilateral carotid arteries; R47.81 Slurred speech; R29.810 Facial weakness; R29.704 NIHSS score 4; E78.5 Hyperlipidemia, unspecified; Z91.14 Patient's other noncompliance with medication regimen; Z79.899 Other long term (current) drug therapy
CPT/HCPCS: 0042T; 36415; 36416; 70450; 70496; 70498; 70551; 71045; 80048; 80053; 80061; 82550; 84484; 85007; 85025; 85027; 85610; 85730; 93005; 93306; 94760; 96365; 96376; 99292; J2997; S0028

== ENCOUNTER 2018-12-26 10:32 | Outpatient (CLI) | payer SELFPAY ==
[2018-12-26 12:05] LABS: Mean Corpuscular HGB CONC 33.8 g/dL (32.0-36.0); Mean Corpuscular Hemoglobin 29.1 pg (27.0-31.0); Mean Corpuscular Volume 86.1 fL (78.0-98.0); Mean Platelet Volume 7.6 fL (7.4-10.4); Platelet Count 177 thou/uL (130-400); RBC Distribution Width 11.4 % (11.5-14.5); White Blood Cell (WBC) Count 8.1 thou/uL (4.8-10.8)
[2018-12-26 12:31] LABS: Anion Gap 12 mmol/L (10-20); BUN (Urea Nitrogen) 15 mg/dL (8.9-20.6); Calc. Creatinine Clearance 0 mL/min (70-130); Calcium 10.1 mg/dL (7.8-10.44); Carbon Dioxide 31 mmol/L (22-29); Chloride 101 mmol/L (98-107); Estimated GFR-MDRD 86; Glucose 97 mg/dL (70-105); Potassium 4.3 mmol/L (3.5-5.1); Sodium 140 mmol/L (136-145)
== END 2018-12-26 10:33 | disposition home or self-care (01) ==
LOC: LABBT 10:32
PROVIDERS: ATTEND Thoracic Surgery (Cardiothoracic Vascular Surgery)
DX: Z01.812 Encounter for preprocedural laboratory examination (principal); I63.239 Cerebral infarction due to unspecified occlusion or stenosis of unspecified carotid artery
CPT/HCPCS: 80048; 85027

== ENCOUNTER 2018-12-26 11:30 | Inpatient (IN) | payer SELFPAY ==
[2018-12-27] MEDS ORDERED: Protamine Sulfate 50 MG/5 ML VIAL ONE (06:26)
[2018-12-27] MEDS ORDERED: Heparin 5,000 UNITS/ML VIAL ONE (06:26)
[2018-12-27] MEDS ORDERED: Fentanyl 100 MCG/2 ML VIAL ONE (06:27)
[2018-12-27] MEDS ORDERED: ceFAZolin Sodium (SDC) 2 GM/100 ML BAG ONE (06:40)
[2018-12-27] MEDS ORDERED: Bupivacaine HCl 0.5%/Epinephrine 1:200,000/PF 30 ml Vial ONE (06:47)
[2018-12-27] MEDS ORDERED: Labetalol HCl 100 MG/20 ML VIAL ONE (08:38)
[2018-12-27] MEDS ORDERED: Acetaminophen 325 MG TAB PO PRN (08:55)
[2018-12-27] MEDS ORDERED: traMADol HCl 50 MG TAB PO PRN (08:55)
[2018-12-27] MEDS ORDERED: Nitroglycerin 50 MG/250 ML BOT 250 ML IVPB PRN (08:55)
[2018-12-27] MEDS ORDERED: hydrALAZINE 20 MG/ML VIAL SLOW IVP PRN (08:55)
[2018-12-27] MEDS ORDERED: Fentanyl 100 MCG/2 ML VIAL SLOW IVP PRN (08:55)
[2018-12-27] MEDS ORDERED: Phenylephrine 10 MG/NS 250 ML 250 ML IVPB PRN (08:55)
--- NOTE | 2018-12-27 09:06 | OP ---
DATE OF PROCEDURE: 12/27/2018 PREOPERATIVE DIAGNOSIS: Symptomatic left carotid stenosis. POSTOPERATIVE DIAGNOSIS: Symptomatic left carotid stenosis. PROCEDURE PERFORMED: Left carotid endarterectomy with patch angioplasty. ANESTHESIA: General endotracheal-Dr. Coleman Watkins. ESTIMATED BLOOD LOSS: Less than 100. DRAINS: None. SPECIMENS: None. DESCRIPTION OF PROCEDURE: After consent was obtained, the patient was brought to the operating room, placed in supine position on the operating room table. Appropriate central line was placed and general endotracheal anesthesia induced. Chest and legs were prepped and draped in usual sterile fashion. Head was rotated to the right. Neck was prepped and draped in usual sterile fashion. Joints were appropriately supported. Skin incision was made along the anterior border of the sternocleidomastoid. Platysma was incised with electrocautery. Carotid sheath was entered. Facial vein branch was divided between clips and ties. Common internal and external carotid arteries were serially exposed. Vagus and hypoglossal nerves were noted and protected throughout the procedure. The patient was given 5000 units of heparin. After 3 minutes, internal common and external carotid arteries were serially clamped. Incision was made on the common carotid artery extended through the bulb on the internal carotid artery distal to the plaque. A 10-[place] shunt was placed and antegrade flow reestablished. Endarterectomy was performed beginning on the common carotid artery extending through the bulb onto the internal carotid artery. A good tapered distal endpoint was obtained. Medial fibers were debrided. Bovine pericardial patch was sewn in place with running 6-0 Prolene suture. Prior to completion of the patch suture line, shunt was clamped and removed. Patch suture line was completed. Arteries were back bled and flushed with heparinized saline. Patch suture line was then tied. Antegrade flow was re-established up the external carotid artery, followed by the internal carotid artery 10 seconds later. Protamine was administered. Hemostasis was ensured. Wounds were then closed in layers and Dermabond applied to the skin. There was palpable pulse distal to the patch at completion. The patient was awakened and urologically unchanged from his preoperative state. Needle, sponge, and instrument counts were all reported as correct at the end of the procedure. The patient was transferred to the recovery room in stable condition. Job ID: [id number]
[2018-12-27] MEDS: Aspirin 81 mg Enteric Coated Tablet PO SCH ×3 (09:55→12:15)
[2018-12-27 09:56] VITALS: BP 154/92
[2018-12-27] MEDS: Sodium Chloride 0.9% 1,000 ML IV SCH ×2 (09:56→19:22)
[2018-12-27 12:33] VITALS: BMI 25.2
[2018-12-27] MEDS: CEFAZOLIN 2 GM, Admixture Fee 1 EACH in Sodium Chloride 0.9% 100 ML IVPB SCH ×2 (16:14→22:04)
[2018-12-27] MEDS: Ondansetron PF 4 MG/2 ML Vial IVP PRN ×2 (16:21→23:28)
[2018-12-27] MEDS ORDERED: Atorvastatin Calcium 40 MG TAB PO SCH (21:00)
[2018-12-27] MEDS ORDERED: Loratadine 10 MG TAB PO SCH (21:00)
[2018-12-28] MEDS: CEFAZOLIN 2 GM, Admixture Fee 1 EACH in Sodium Chloride 0.9% 100 ML IVPB SCH (06:48)
--- NOTE | 2018-12-28 07:16 | DIS ---
DATE OF ADMISSION: 12/27/2018 DATE OF DISCHARGE: 12/28/2018 PROCEDURE: Left carotid endarterectomy. DESCRIPTION OF HOSPITAL STAY: Mr. Garcia was admitted for elective left carotid endarterectomy after having suffered a left hemispheric cerebrovascular accident approximately 2 weeks ago. He has done well postoperatively. He has had no further left hemispheric symptoms. On discharge, he is ambulatory, tolerating regular diet, having good bowel and bladder function. Incision is clean and dry without evidence of infection. DISCHARGE MEDICATIONS: Unchanged from his home regimen. Job ID: [id number]
[2018-12-28] MEDS: Aspirin 81 mg Enteric Coated Tablet PO SCH (08:00)
[2018-12-28 08:32] VITALS: TEMP 97.8
== END 2018-12-28 09:06 | disposition home or self-care (01) | DRG 38 ==
LOC: SURG A 12-27 06:25 → CCU 12-27 08:49
PROVIDERS: ADMIT Thoracic Surgery (Cardiothoracic Vascular Surgery); ATTEND Thoracic Surgery (Cardiothoracic Vascular Surgery)
PROC: 03CJ0ZZ Extirpation of Matter from Left Common Carotid Artery, Open Approach (ICD-10-PCS; principal; 2018-12-27)
PROC: 03CL0ZZ Extirpation of Matter from Left Internal Carotid Artery, Open Approach (ICD-10-PCS; 2018-12-27)
PROC: 03UJ0KZ Supplement Left Common Carotid Artery with Nonautologous Tissue Substitute, Open Approach (ICD-10-PCS; 2018-12-27)
PROC: 03UL0KZ Supplement Left Internal Carotid Artery with Nonautologous Tissue Substitute, Open Approach (ICD-10-PCS; 2018-12-27)
DX: I65.22 Occlusion and stenosis of left carotid artery (principal); I69.354 Hemiplegia and hemiparesis following cerebral infarction affecting left non-dominant side; F17.200 Nicotine dependence, unspecified, uncomplicated; I10 Essential (primary) hypertension; Z79.899 Other long term (current) drug therapy; Z79.82 Long term (current) use of aspirin; Z91.018 Allergy to other foods
CPT/HCPCS: 94640; J0360; J0670; J0690; J1642; J1644; J2405; J2720; J3010; J3490; J7620